=== PATIENT | female | born 1970 | race Caucasian/White ===

== ENCOUNTER → 2016-06-28 | Outpatient (CLI) | payer OTHER ==
[~2016-06-28] MED LIST: ADVAIR 250/501 EA INH; ASPIR 8181 MG PO; ATIVAN0.5 MG PO; ATIVAN1 MG PO; BUSPIRONE HCL7.5 MG PO; BUSPIRONE10 MG PO; CIPROFLOXACIN500 MG PO; ENALAPRIL/HCTZ1 TA1 PO; FOLIC ACID1 MG PO; GLIPIZIDE5 MG PO; HUMALOG100 U/ML SC; HYDR12.5C PO; HYDROCHLOROTHIAZIDE PO; KEFLEX500 MG PO; KLONOPIN0.5 MG PO; LAMICTAL200 MG PO; LAMICTAL25 MG PO; MELOXICAM7.5 MG PO; METFORMIN1000 MG PO; MOBIC7.5 MG PO; Motrin,Rufen400 MG PO; NAPROSYN500 MG PO; NATURE'S BLEND F1 MG PO; PRILOSEC PO; PRILOSEC40 MG PO; PRO-AIR INH; PROAIR HFA0.09 MG/AC INH; SAPHRIS5 MG SL; SINGULAIR10 MG PO; VASOTEC PO; VICODIN 5/500 505 MG PO; VOLTAREN75 MG PO
[2016-06-28 12:06] LABS: BASO # 0.1 10*3/uL (0.0-0.1); BASO % 0.9 % (0.0-1.0); EOS # 0.2 10*3/uL (0.0-0.4); EOS % 3.7 % (1.0-4.0); HEMATOCRIT 41.7 % (37.0-47.0); HEMOGLOBIN 13.6 g/dl (12.0-16.0); LYMPH # 1.8 10*3/uL (1.3-4.4); LYMPH % 31.7 % (27.0-41.0); MEAN CELL VOLUME 88.3 fl (81.0-99.0); MEAN CORPUSCULAR HGB 28.8 pg (27.0-31.0); MEAN CORPUSCULAR HGB CONC 32.6 g/dl (33.0-37.0); MEAN PLATELET VOLUME 11.2 fl (9.6-12.3); MONO # 0.4 10*3/uL (0.1-1.0); MONO % 7.4 % (3.0-9.0); NEUT # 3.2 10*3/uL (2.3-7.9); NEUT % 55.9 % (47.0-73.0); PLATELET COUNT AUTOMATED 206 10*3/uL (130-400); RED BLOOD COUNT 4.72 10*6/uL (4.10-5.10); RED CELL DISTRI WIDTH 12.2 % (0-14.5); WHITE BLOOD COUNT 5.7 10*3/uL (4.8-10.8)
[2016-06-28 12:30] LABS: ALBUMIN 3.1 gm/dl (3.1-4.5); BUN 9 mg/dl (7-24); CARBON DIOXIDE 32 mmol/L (21-32); CHLORIDE 100 mmol/L (98-107); CHOLESTEROL 162 mg/dL (<200); EST GLOM FILT AFRICAN AMERICAN > 60 ml/min; GLUCOSE 144 mg/dL (65-99); POTASSIUM 4.5 mmol/L (3.5-5.1); SGOT/AST 46 IU/L (3-35); SGPT/ALT 34 U/L (12-78); SODIUM 140 mmol/L (136-145)
[2016-06-28 12:33] LABS: ALKALINE PHOSPHATASE 106 U/L (45-117); BILIRUBIN, TOTAL 0.8 mg/dl (0.2-1.0); HDL CHOLESTEROL 54 mg/dl (40-60); LDL CHOLESTEROL 85 mg/dL (9-159); TOTAL PROTEIN 7.7 gm/dL (6.4-8.2); TRIGLYCERIDES 113 mg/dl (<150); VLDL CHOLESTEROL 23 mg/dL (6-40)
[2016-06-28 12:36] LABS: BILIRUBIN NEGATIVE (NEGATIVE); BLOOD NEGATIVE (NEGATIVE); CLARITY SL CLOUDY (CLEAR); COLOR YELLOW (YELLOW); GLUCOSE NEGATIVE (NEGATIVE); KETONE NEGATIVE (NEGATIVE); LEUKO ESTERASE NEGATIVE (NEGATIVE); NITRITE NEGATIVE (NEGATIVE); PH 5.5 (5.0-9.0); PROTEIN NEGATIVE (NEGATIVE); SPECIFIC GRAVITY <= 1.005 (1.005-1.030); UROBILINOGEN 0.2 E.U./dl (0.2-1.0)
[2016-06-28 12:44] LABS: HEMOGLOBIN A1c 7.6 % (4.8-5.6)
[2016-06-28 14:29] LABS: BACTERIA TRACE; EPITHELIAL CELLS 20-25; WBC 0-2 wbc/hpf (0-5)
[2016-06-28 14:30] LABS: RBC 0-2 rbc/hpf (0-2)
== END | disposition home or self-care (01) ==
LOC: LAB 11:24
PROVIDERS: Nurse Practitioner Family
DX: I10 Essential (primary) hypertension (principal); E11.9 Type 2 diabetes mellitus without complications

== ENCOUNTER → 2016-10-08 | Outpatient (CLI) | payer OTHER ==
[2016-10-08 09:33] LABS: BASO % 0.5 % (0.0-1.0); EOS # 0.2 10*3/uL (0.0-0.4); EOS % 3.6 % (1.0-4.0); HEMATOCRIT 41.8 % (37.0-47.0); HEMOGLOBIN 13.7 g/dl (12.0-16.0); LYMPH # 1.6 10*3/uL (1.3-4.4); LYMPH % 29.2 % (27.0-41.0); MEAN CELL VOLUME 88.9 fl (81.0-99.0); MEAN CORPUSCULAR HGB 29.1 pg (27.0-31.0); MEAN CORPUSCULAR HGB CONC 32.8 g/dl (33.0-37.0); MEAN PLATELET VOLUME 11.1 fl (9.6-12.3); MONO # 0.4 10*3/uL (0.1-1.0); MONO % 6.7 % (3.0-9.0); NEUT # 3.3 10*3/uL (2.3-7.9); NEUT % 59.6 % (47.0-73.0); PLATELET COUNT AUTOMATED 197 10*3/uL (130-400); RED CELL DISTRI WIDTH 12.3 % (0-14.5); WHITE BLOOD COUNT 5.6 10*3/uL (4.8-10.8)
[2016-10-08 10:07] LABS: ALBUMIN 3.1 gm/dl (3.1-4.5); ALKALINE PHOSPHATASE 114 U/L (45-117); BILIRUBIN, TOTAL 0.5 mg/dl (0.2-1.0); BUN 8 mg/dl (7-24); CARBON DIOXIDE 30 mmol/L (21-32); CHLORIDE 104 mmol/L (98-107); EST GLOM FILT AFRICAN AMERICAN > 60 ml/min; GLUCOSE 171 mg/dL (65-99); IRON 64 ug/dL (50-170); IRON SATURATION 24 %; POTASSIUM 4.1 mmol/L (3.5-5.1); SGOT/AST 28 IU/L (3-35); SGPT/ALT 30 U/L (12-78); SODIUM 140 mmol/L (136-145); TOTAL PROTEIN 7.9 gm/dL (6.4-8.2); UIBC 194 ug/dL (110-365)
[2016-10-08 10:10] LABS: HEMOGLOBIN A1c 8.3 % (4.8-5.6)
[2016-10-08 10:27] LABS: FERRITIN 291.4 ng/mL (10.0-291.0); VITAMIN D, 25-HYDROXY 9.8 ng/mL (30-100)
[2016-10-08 10:28] LABS: FOLIC ACID 12.91 ng/mL (>5.38)
== END | disposition home or self-care (01) ==
LOC: LAB 09:14
PROVIDERS: Surgery
DX: E66.09 Other obesity due to excess calories (principal); R79.89 Other specified abnormal findings of blood chemistry; E55.9 Vitamin D deficiency, unspecified

== ENCOUNTER → 2016-10-11 | Outpatient (CLI) | payer OTHER | END | disposition home or self-care (01) | LOC: CARD 09:24 | DX: R06.09 Other forms of dyspnea (principal) ==

== ENCOUNTER → 2017-06-24 | Outpatient (CLI) | payer OTHER | LOC: RAD 12:01 | DX: M16.12 Unilateral primary osteoarthritis, left hip (principal); M54.2 Cervicalgia; M54.5 Low back pain ==

== ENCOUNTER → 2017-10-16 | Outpatient (CLI) | payer OTHER ==
[~2017-10-16] MED LIST changes: +TYLENOL W/CODEI1 TA4 PO
[2017-10-16 09:05] LABS: HEMATOCRIT 43.3 % (37.0-47.0); MEAN CELL VOLUME 90.2 fl (81.0-99.0); MEAN CORPUSCULAR HGB 29.2 pg (27.0-31.0); MEAN CORPUSCULAR HGB CONC 32.3 g/dl (33.0-37.0); MEAN PLATELET VOLUME 11.8 fl (9.6-12.3); RED BLOOD COUNT 4.8 10*6/uL (4.10-5.10); RED CELL DISTRI WIDTH 12.4 % (0-14.5)
[2017-10-16 09:27] LABS: ALBUMIN 3.2 gm/dl (3.1-4.5); ALKALINE PHOSPHATASE 89 U/L (45-117); BUN 10 mg/dl (7-24); CHLORIDE 106 mmol/L (98-107); CHOLESTEROL 158 mg/dL (<200); CREATININE 0.89 mg/dL (0.55-1.02); HDL CHOLESTEROL 49 mg/dl (40-60); LDL CHOLESTEROL 91 mg/dL (9-159); POTASSIUM 4.7 mmol/L (3.5-5.1); SGOT/AST 15 IU/L (3-35); SGPT/ALT 19 U/L (12-78); SODIUM 141 mmol/L (136-145); TOTAL PROTEIN 7.5 gm/dL (6.4-8.2); TRIGLYCERIDES 92 mg/dl (<150); VLDL CHOLESTEROL 18 mg/dL (6-40)
== END ==
LOC: LAB 08:34
PROVIDERS: Nurse Practitioner Family
DX: E11.9 Type 2 diabetes mellitus without complications (principal)

== ENCOUNTER → 2017-11-21 | Outpatient (CLI) | payer OTHER | END | disposition home or self-care (01) | LOC: MRI 09:00 | DX: M25.78 Osteophyte, vertebrae (principal); M54.12 Radiculopathy, cervical region; M62.838 Other muscle spasm; R20.0 Anesthesia of skin ==

== ENCOUNTER 2017-12-20 16:16 | Emergency (ER) | payer OTHER ==
[~2017-12-20 16:16] MED LIST changes: -TYLENOL W/CODEI1 TA4 PO
[2017-12-20] MEDS ORDERED: TYLENOL W/CODEI1 TA4 PO (18:01)
== END 2017-12-20 18:00 | disposition home or self-care (01) ==
LOC: ED 16:16
DX: S50.01XA Contusion of right elbow, initial encounter (principal); S80.01XA Contusion of right knee, initial encounter; Z88.1 Allergy status to other antibiotic agents; Z79.899 Other long term (current) drug therapy; W18.39XA Other fall on same level, initial encounter; Y93.89 Activity, other specified; Y92.89 Other specified places as the place of occurrence of the external cause; Y99.8 Other external cause status

== ENCOUNTER 2018-03-05 21:44 | Emergency (ER) | payer OTHER ==
[~2018-03-05 21:44] MED LIST changes: +TYLENOL W/CODEI1 TA4 PO
[2018-03-05 21:46] VITALS: BP 148/79
== END 2018-03-05 23:47 | disposition home or self-care (01) ==
LOC: ED 21:44
DX: S60.222A Contusion of left hand, initial encounter (principal); Z79.899 Other long term (current) drug therapy; Z88.1 Allergy status to other antibiotic agents; W01.198A Fall on same level from slipping, tripping and stumbling with subsequent striking against other object, initial encounter; Y93.89 Activity, other specified; Y92.89 Other specified places as the place of occurrence of the external cause; Y99.8 Other external cause status

== ENCOUNTER 2019-04-02 14:07 | Emergency (ER) | payer OTHER ==
[~2019-04-02] VITALS: Ht 162.5 cm; Wt 132.0 kg
[2019-04-02 14:22] VITALS: BP 135/84
[2019-04-02] MEDS ORDERED: TAMIFLU 75MG CA75 MG PO (15:28)
== END 2019-04-02 15:39 | disposition home or self-care (01) ==
LOC: ED 14:07
DX: J10.1 Influenza due to other identified influenza virus with other respiratory manifestations (principal); H92.03 Otalgia, bilateral; E11.9 Type 2 diabetes mellitus without complications; I10 Essential (primary) hypertension; K21.9 Gastro-esophageal reflux disease without esophagitis; J45.909 Unspecified asthma, uncomplicated; M19.90 Unspecified osteoarthritis, unspecified site; E78.00 Pure hypercholesterolemia, unspecified; E66.9 Obesity, unspecified; Z88.8 Allergy status to other drugs, medicaments and biological substances; Z79.899 Other long term (current) drug therapy; Z79.4 Long term (current) use of insulin; Z79.2 Long term (current) use of antibiotics

== ENCOUNTER 2019-12-24 14:55 | Emergency (ER) | payer OTHER ==
[~2019-12-24] VITALS: Wt 132.0 kg
[~2019-12-24 14:55] MED LIST changes: +TAMIFLU 75MG CA75 MG PO
[2019-12-24 15:06] VITALS: BP 152/67
[2019-12-24 15:34] LABS: BASO % 0.5 % (0.0-1.0); EOS # 0.3 10*3/uL (0.0-0.4); EOS % 4.7 % (1.0-4.0); HEMATOCRIT 42.3 % (37.0-47.0); LYMPH # 1.3 10*3/uL (1.3-4.4); LYMPH % 21.5 % (27.0-41.0); MEAN CELL VOLUME 90.6 fl (81.0-99.0); MEAN CORPUSCULAR HGB 28.9 pg (27.0-31.0); MEAN CORPUSCULAR HGB CONC 31.9 g/dl (33.0-37.0); MEAN PLATELET VOLUME 11.5 fl (9.6-12.3); MONO # 0.4 10*3/uL (0.1-1.0); NEUT % 65.8 % (47.0-73.0); PLATELET COUNT AUTOMATED 188 10*3/uL (130-400); RED BLOOD COUNT 4.67 10*6/uL (4.10-5.10); RED CELL DISTRI WIDTH 12.3 % (0-14.5); WHITE BLOOD COUNT 6.1 10*3/uL (4.8-10.8)
[2019-12-24 16:02] LABS: ALBUMIN 3.2 gm/dl (3.1-4.5); ALKALINE PHOSPHATASE 85 U/L (45-117); BUN 8 mg/dl (7-24); CHLORIDE 109 mmol/L (98-107); CREATININE 0.87 mg/dL (0.55-1.02); POTASSIUM 3.8 mmol/L (3.5-5.1); SGOT/AST 11 IU/L (3-35); SGPT/ALT 17 U/L (12-78); SODIUM 144 mmol/L (136-145); TOTAL PROTEIN 7.6 gm/dL (6.4-8.2)
[2019-12-24] MEDS ORDERED: Ipratropium Brom3 ML INH (16:51)
[2019-12-24] MEDS ORDERED: AEROECLIPSE II1 EACH MC (16:51)
[2019-12-24] MEDS ORDERED: ZITHROMAX250 MG PO (17:18)
[2019-12-24] MEDS ORDERED: MEDROL DOSEPAK4 MG PO (17:18)
== END 2019-12-24 17:27 | disposition home or self-care (01) ==
LOC: ED 14:55
PROVIDERS: Student in an Organized Health Care Education/Training Program
DX: J45.901 Unspecified asthma with (acute) exacerbation (principal); I10 Essential (primary) hypertension; E11.9 Type 2 diabetes mellitus without complications; K21.9 Gastro-esophageal reflux disease without esophagitis; M19.90 Unspecified osteoarthritis, unspecified site; E78.00 Pure hypercholesterolemia, unspecified; Z88.8 Allergy status to other drugs, medicaments and biological substances; Z79.899 Other long term (current) drug therapy; Z79.2 Long term (current) use of antibiotics

== ENCOUNTER → 2020-11-02 | Outpatient (CLI) | payer OTHER ==
[~2020-11-02] MED LIST changes: +AEROECLIPSE II1 EACH MC; +Ipratropium Brom3 ML INH; +MEDROL DOSEPAK4 MG PO; +ZITHROMAX250 MG PO
== END | disposition home or self-care (01) ==
LOC: US 14:30
PROVIDERS: ATTEND Podiatrist
DX: M79.604 Pain in right leg (principal); R60.0 Localized edema

== ENCOUNTER 2021-07-22 09:40 | Emergency (ER) | payer OTHER ==
[~2021-07-22] VITALS: Ht 165.1 cm; Wt 131.5 kg
[2021-07-22] MEDS ORDERED: CYCLOBENZAPRINE10 MG PO (12:38)
[2021-07-22] MEDS ORDERED: TYLENOL325 M1 PO (12:38)
[2021-07-22] MEDS ORDERED: NAPROXEN250 MG PO (12:38)
[2021-07-22 14:12] VITALS: BP 129/74
== END 2021-07-22 14:33 | disposition home or self-care (01) ==
LOC: ED 09:40
DX: S10.93XA Contusion of unspecified part of neck, initial encounter (principal); Z88.1 Allergy status to other antibiotic agents; Z79.899 Other long term (current) drug therapy; Z90.710 Acquired absence of both cervix and uterus; Z98.51 Tubal ligation status; Z98.890 Other specified postprocedural states; X58.XXXA Exposure to other specified factors, initial encounter; Y93.89 Activity, other specified; Y92.89 Other specified places as the place of occurrence of the external cause; Y99.8 Other external cause status

== ENCOUNTER 2022-01-30 12:47 | Emergency (ER) | payer OTHER ==
[~2022-01-30] VITALS: Ht 165.1 cm; Wt 137.0 kg
[~2022-01-30 12:47] MED LIST changes: +CYCLOBENZAPRINE10 MG PO; +NAPROXEN250 MG PO; +TYLENOL325 M1 PO
[2022-01-30 12:54] VITALS: BP 165/73
[2022-01-30 14:02] LABS: BASO % 0.4 % (0.0-1.0); EOS # 0.2 10*3/uL (0.0-0.4); HEMATOCRIT 39.8 % (37.0-47.0); LYMPH # 1.3 10*3/uL (1.3-4.4); LYMPH % 28.6 % (27.0-41.0); MEAN CELL VOLUME 89.6 fl (81.0-99.0); MEAN CORPUSCULAR HGB 29.7 pg (27.0-31.0); MEAN CORPUSCULAR HGB CONC 33.2 g/dl (33.0-37.0); MONO # 0.4 10*3/uL (0.1-1.0); NEUT # 2.5 10*3/uL (2.3-7.9); NEUT % 55.5 % (47.0-73.0); PLATELET COUNT AUTOMATED 188 10*3/uL (130-400); RED BLOOD COUNT 4.44 10*6/uL (4.10-5.10); RED CELL DISTRI WIDTH 12.6 % (0-14.5); WHITE BLOOD COUNT 4.6 10*3/uL (4.8-10.8)
[2022-01-30 14:09] LABS: ALKALINE PHOSPHATASE 77 U/L (46-116); BUN 6 mg/dl (9-23); CHLORIDE 104 mmol/L (98-107); CREATININE 0.78 mg/dL (0.55-1.02); SGPT/ALT 9 U/L (10-49); SODIUM 141 mmol/L (136-145); TOTAL PROTEIN 6.5 gm/dL (6.0-8.0)
== END 2022-01-30 16:32 | disposition home or self-care (01) ==
LOC: ED 12:47
PROVIDERS: Nurse Practitioner Family
DX: R00.2 Palpitations (principal); R07.89 Other chest pain; Z90.710 Acquired absence of both cervix and uterus; E11.9 Type 2 diabetes mellitus without complications; I10 Essential (primary) hypertension; Z88.1 Allergy status to other antibiotic agents; Z98.51 Tubal ligation status

== ENCOUNTER 2022-03-18 22:23 | Emergency (ER) | payer OTHER ==
[~2022-03-18] VITALS: Ht 165.1 cm; Wt 136.1 kg
[2022-03-18 22:53] LABS: BASO % 0.5 % (0.0-1.0); EOS # 0.6 10*3/uL (0.0-0.4); EOS % 9.9 % (1.0-4.0); HEMATOCRIT 40.6 % (37.0-47.0); LYMPH # 1.6 10*3/uL (1.3-4.4); LYMPH % 28.4 % (27.0-41.0); MEAN CELL VOLUME 89.2 fl (81.0-99.0); MEAN CORPUSCULAR HGB 28.8 pg (27.0-31.0); MEAN CORPUSCULAR HGB CONC 32.3 g/dl (33.0-37.0); MEAN PLATELET VOLUME 10.5 fl (9.6-12.3); MONO # 0.5 10*3/uL (0.1-1.0); MONO % 8.5 % (3.0-9.0); NEUT # 2.9 10*3/uL (2.3-7.9); NEUT % 52.2 % (47.0-73.0); PLATELET COUNT AUTOMATED 191 10*3/uL (130-400); RED BLOOD COUNT 4.55 10*6/uL (4.10-5.10); RED CELL DISTRI WIDTH 12.5 % (0-14.5); WHITE BLOOD COUNT 5.6 10*3/uL (4.8-10.8)
[2022-03-18] MEDS ORDERED: ALLOPURINOL300 MG PO (22:53)
[2022-03-18] MEDS ORDERED: TRAMADOL HCL100 MG PO (22:54)
[2022-03-18] MEDS ORDERED: LOPRESSOR25 MG PO (22:54)
[2022-03-18] MEDS ORDERED: CYMBALTA30 MG PO (22:54)
[2022-03-18] MEDS ORDERED: VASOTEC5 MG PO (22:55)
[2022-03-18] MEDS ORDERED: SINGULAIR10 M1 PO (22:55)
[2022-03-18 23:14] LABS: ALKALINE PHOSPHATASE 80 U/L (46-116); BUN 6 mg/dl (9-23); CHLORIDE 103 mmol/L (98-107); POTASSIUM 3.9 mmol/L (3.4-5.1); SGPT/ALT 19 U/L (10-49); TOTAL PROTEIN 7.2 gm/dL (6.0-8.0)
[2022-03-19] MEDS ORDERED: Ipratropium Brom3 ML INH (01:38)
[2022-03-19] MEDS ORDERED: PREDNISONE20 M1 PO (01:38)
== END 2022-03-19 01:44 | disposition home or self-care (01) ==
LOC: ED 22:23
PROVIDERS: Emergency Medicine
DX: J45.901 Unspecified asthma with (acute) exacerbation (principal); R06.02 Shortness of breath; Z88.1 Allergy status to other antibiotic agents; Z90.710 Acquired absence of both cervix and uterus; Z98.51 Tubal ligation status; Z98.890 Other specified postprocedural states; F41.9 Anxiety disorder, unspecified

== ENCOUNTER 2022-05-05 23:39 | Emergency (ER) | payer OTHER ==
[~2022-05-05 23:39] MED LIST changes: +ALLOPURINOL300 MG PO; +CYMBALTA30 MG PO; +LOPRESSOR25 MG PO; +PREDNISONE20 M1 PO; +SINGULAIR10 M1 PO; +TRAMADOL HCL100 MG PO; +VASOTEC5 MG PO
[2022-05-06 02:04] VITALS: BP 122/79
[2022-05-06] MEDS ORDERED: PREDNISONE20 M1 PO (02:05)
[2022-05-06] MEDS ORDERED: ZITHROMAX250 MG PO (02:05)
== END 2022-05-06 02:30 | disposition home or self-care (01) ==
LOC: ED 23:39
DX: J45.901 Unspecified asthma with (acute) exacerbation (principal); I10 Essential (primary) hypertension; E11.9 Type 2 diabetes mellitus without complications; K21.9 Gastro-esophageal reflux disease without esophagitis; M19.90 Unspecified osteoarthritis, unspecified site; M79.7 Fibromyalgia; E87.8 Other disorders of electrolyte and fluid balance, not elsewhere classified; E44.1 Mild protein-calorie malnutrition; Z88.1 Allergy status to other antibiotic agents; Z90.710 Acquired absence of both cervix and uterus; Z98.51 Tubal ligation status; Z98.890 Other specified postprocedural states

== ENCOUNTER 2022-06-20 20:51 | Emergency (ER) | payer OTHER ==
[~2022-06-20] VITALS: Ht 165.1 cm; Wt 136.1 kg
[2022-06-20] MEDS ORDERED: NAPROSYN500 MG PO (21:46)
== END 2022-06-20 21:53 | disposition home or self-care (01) ==
LOC: ED 20:51
DX: M76.71 Peroneal tendinitis, right leg (principal); Z88.1 Allergy status to other antibiotic agents; Z79.899 Other long term (current) drug therapy; Z90.710 Acquired absence of both cervix and uterus; Z98.51 Tubal ligation status; Z90.49 Acquired absence of other specified parts of digestive tract; Z98.890 Other specified postprocedural states

== ENCOUNTER 2022-10-28 16:57 | Emergency (ER) | payer OTHER ==
[~2022-10-28] VITALS: Ht 165.1 cm; Wt 135.6 kg
[2022-10-28 17:13] VITALS: BP 133/86
[2022-10-28] MEDS ORDERED: PREDNISONE20 M1 PO (18:06)
[2022-10-28] MEDS ORDERED: CYCLOBENZAPRINE5 M3 PO (18:06)
== END 2022-10-28 18:15 | disposition home or self-care (01) ==
LOC: ED 16:57
DX: S39.012A Strain of muscle, fascia and tendon of lower back, initial encounter (principal); M79.7 Fibromyalgia; M19.90 Unspecified osteoarthritis, unspecified site; Z88.1 Allergy status to other antibiotic agents; Z79.899 Other long term (current) drug therapy; Z79.2 Long term (current) use of antibiotics; Z90.711 Acquired absence of uterus with remaining cervical stump; Z98.51 Tubal ligation status; X50.0XXA Overexertion from strenuous movement or load, initial encounter; Y93.F2 Activity, caregiving, lifting; Y92.89 Other specified places as the place of occurrence of the external cause; Y99.8 Other external cause status

== ENCOUNTER → 2022-10-30 | Outpatient (CLI) | payer OTHER ==
[~2022-10-30] MED LIST changes: +CYCLOBENZAPRINE5 M3 PO
== END | disposition home or self-care (01) ==
LOC: RAD 01:36
PROVIDERS: ATTEND Specialist
DX: R13.12 Dysphagia, oropharyngeal phase (principal)

== ENCOUNTER 2022-11-21 23:00 | Emergency (ER) | payer OTHER ==
[~2022-11-21] VITALS: Ht 165.1 cm; Wt 132.4 kg
[2022-11-21 23:17] VITALS: BP 137/94
[2022-11-22] MEDS ORDERED: NAPROXEN250 MG PO (00:28)
== END 2022-11-22 00:35 | disposition home or self-care (01) ==
LOC: ED 23:00
DX: S60.221A Contusion of right hand, initial encounter (principal); I10 Essential (primary) hypertension; E11.9 Type 2 diabetes mellitus without complications; K21.9 Gastro-esophageal reflux disease without esophagitis; M19.90 Unspecified osteoarthritis, unspecified site; E78.00 Pure hypercholesterolemia, unspecified; M79.7 Fibromyalgia; Z88.8 Allergy status to other drugs, medicaments and biological substances; Z90.710 Acquired absence of both cervix and uterus; Z98.51 Tubal ligation status; Z98.890 Other specified postprocedural states; W01.198A Fall on same level from slipping, tripping and stumbling with subsequent striking against other object, initial encounter; Y93.89 Activity, other specified; Y92.89 Other specified places as the place of occurrence of the external cause; Y99.8 Other external cause status

== ENCOUNTER 2023-02-20 19:26 | Emergency (ER) | payer SELFPAY ==
[~2023-02-20] VITALS: Ht 165.1 cm; Wt 131.5 kg
[2023-02-20 20:02] VITALS: BP 118/68
== END 2023-02-20 21:55 | disposition home or self-care (01) ==
LOC: ED 19:26
DX: M25.511 Pain in right shoulder (principal); I10 Essential (primary) hypertension; E11.9 Type 2 diabetes mellitus without complications; K21.9 Gastro-esophageal reflux disease without esophagitis; J45.909 Unspecified asthma, uncomplicated; E78.00 Pure hypercholesterolemia, unspecified; M19.90 Unspecified osteoarthritis, unspecified site; M79.7 Fibromyalgia; Z88.1 Allergy status to other antibiotic agents; Z90.710 Acquired absence of both cervix and uterus; Z98.51 Tubal ligation status; Z98.890 Other specified postprocedural states

== ENCOUNTER 2023-11-19 09:05 | Emergency (ER) | payer OTHER ==
[~2023-11-19] VITALS: Ht 165.1 cm; Wt 115.0 kg
[2023-11-19 09:15] VITALS: BP 153/95
[2023-11-19] MEDS ORDERED: ASPERCREME LID1 EACH T (09:25)
[2023-11-19] MEDS ORDERED: TYLENOL EXTRA500 MG PO (10:03)
== END 2023-11-19 10:22 | disposition home or self-care (01) ==
LOC: ED 09:05
DX: S49.91XA Unspecified injury of right shoulder and upper arm, initial encounter (principal); J45.909 Unspecified asthma, uncomplicated; I10 Essential (primary) hypertension; E11.9 Type 2 diabetes mellitus without complications; K21.9 Gastro-esophageal reflux disease without esophagitis; E78.00 Pure hypercholesterolemia, unspecified; M79.7 Fibromyalgia; Z88.1 Allergy status to other antibiotic agents; Z90.710 Acquired absence of both cervix and uterus; Z90.49 Acquired absence of other specified parts of digestive tract; Z98.51 Tubal ligation status; Z98.890 Other specified postprocedural states; W19.XXXA Unspecified fall, initial encounter; Y93.89 Activity, other specified; Y92.009 Unspecified place in unspecified non-institutional (private) residence as the place of occurrence of the external cause; Y99.8 Other external cause status